=== PATIENT | male | born 1970 | race Two or more races ===

== ENCOUNTER → 2020-04-22 | Outpatient (REF) | LOC: M LAB REF 08:30 | PROVIDERS: ATTEND Student in an Organized Health Care Education/Training Program | DX: Z11.59 Encounter for screening for other viral diseases (principal); Z20.828 Contact with and (suspected) exposure to other viral communicable diseases ==

== ENCOUNTER → 2021-02-03 | Outpatient (REF) | payer BC | LOC: M LABCFH 13:46 | PROVIDERS: ATTEND Physician Assistant | DX: D23.62 Other benign neoplasm of skin of left upper limb, including shoulder (principal) ==

== ENCOUNTER → 2021-03-11 | Outpatient (CLI) | payer BC ==
--- NOTE | 2021-03-11 11:31 | REP ---
INDICATION: ESSENTIAL HTN; HTN. COMPARISON: None. TECHNIQUE: Real-time sonographic evaluation of the kidneys is performed. FINDINGS: Renal cortical echogenicity pattern is normal bilaterally and contours are smooth. There is no hydronephrosis bilaterally. There is a 1.3 cm cyst in the upper pole the left kidney. The right kidney measures 11.5 x 7.7 x 7.0 cm. Left renal dimensions are 10.9 x 5.8 x 6.5 cm. The urinary bladder is empty. The peak systolic velocity of the abdominal aorta at the level of the renal arteries is 71 centimeter/second. The peak systolic velocity of the main right renal artery is 121 centimeters/second, renal to aortic ratio 1.70. Resistive indices right kidney range between 0.55 and 0.65. Acceleration times range seen 0.030 and 0.067. The peak systolic velocity of the main left renal artery is 162 centimeters/second, renal to aortic ratio 2.3. Resistive indices left kidney range between 0.59 and 0.64. Acceleration times range between 0.058 and 0.070. IMPRESSION: No compelling duplex Doppler sonographic evidence of hemodynamically significant stenosis of the renal arteries bilaterally. <Electronically signed by Gene Odom > 03/11/21 0245
== END ==
LOC: M RAD 08:36
PROVIDERS: ATTEND Registered Nurse
DX: I10 Essential (primary) hypertension (principal)

== ENCOUNTER → 2022-04-20 | Outpatient (REF) | payer BC ==
[2022-04-20 13:50] LABS: APPEARANCE, URINE CLEAR (CLEAR); BACTERIA, URINE AUTO NEGATIVE (NEGATIVE); BILIRUBIN, URINE AUTO NEGATIVE (NEGATIVE); BLOOD, URINE BLOOD NEGATIVE (NEGATIVE); COLOR, URINE YELLOW (YELLOW); GLUCOSE, URINE (UA) AUTO NEGATIVE (NEGATIVE); KETONE, URINE AUTO NEGATIVE (NEGATIVE); LEUKOCYTE ESTERASE, URINE AUTO NEGATIVE (NEGATIVE); MUCUS, URINE SMALL (NEGATIVE); NITRITE, URINE AUTO NEGATIVE (NEGATIVE); PROTEIN, URINE AUTO NEGATIVE (NEGATIVE); RBC, URINE AUTO 1 /HPF (0-3); SPECIFIC GRAVITY URINE AUTO 1.016 (1.002-1.035); SQUAMOUS EPITHELIAL CELL UR AU 0 /HPF (0-6); UROBILINOGEN, URINE AUTO 0.2 mg/dL (0.0-2.0); WBC, URINE AUTO 0 /HPF (0-3)
[2022-04-20 14:31] LABS: TOTAL PROTEIN,RANDOM URINE 13.7 MG/DL (0.0-12.0)
[2022-04-20 15:03] LABS: C REACTIVE PROTEIN QUANTITATIV < 0.30 MG/DL (0.00-0.30); IRON (FE) 71 UG/DL (65-175); MAGNESIUM LEVEL 2.2 MG/DL (1.8-2.4)
[2022-04-20 16:11] LABS: TOTAL 25(OH) VITAMIN D 21.8 NG/ML (30.0-100.0); VITAMIN B12 LEVEL 468 PG/ML (247-911)
[2022-04-22 08:10] LABS: DRVV SCREEN 45.8 SEC
[2022-04-22 08:16] LABS: PTT LUPUS TYPE ANTICOAG SCREEN 1.2 (0-1.2)
[2022-04-22 08:23] LABS: DRVV CONFIRM 38.8 SEC
[2022-04-22 08:32] LABS: NORMALIZED RATIO 1.2 (0.00-1.20)
[2022-04-24 14:07] LABS: HEXAGONAL PHASE PHOSPHOLIPID 6 sec (0-11)
== END ==
LOC: M SFHCRHEU 10:41
PROVIDERS: ATTEND Internal Medicine
DX: R80.8 Other proteinuria (principal); R53.82 Chronic fatigue, unspecified; M25.50 Pain in unspecified joint; L56.8 Other specified acute skin changes due to ultraviolet radiation

== ENCOUNTER → 2022-05-25 | Outpatient (REF) | LOC: M SLEEP HO 10:00 | PROVIDERS: ATTEND Student in an Organized Health Care Education/Training Program | DX: G47.33 Obstructive sleep apnea (adult) (pediatric) (principal) ==

== ENCOUNTER → 2022-05-27 | Outpatient (CLI) | payer BC | LOC: M CARPUL 08:37 | PROVIDERS: ATTEND Internal Medicine | DX: M79.89 Other specified soft tissue disorders (principal) ==

== ENCOUNTER 2025-08-22 07:57 | Day surgery (SDC) | payer OTHER ==
[~2025-08-22] VITALS: Ht 172.7 cm; Wt 114.1 kg
[~2025-08-22 07:57] MED LIST: AMLO1TAB25 PO; EZET10TA57 PO; LISI20TA33 PO; MELO15TA28 PO; METO1TAB32 PO; ROSU40TA81 PO
[2025-08-22] MEDS ORDERED: LIDOCAINE 2% 100 MG/5 ML SDV (FOR ANES.) As Ordered ONE (09:17)
[2025-08-22] MEDS ORDERED: GLYCOPYRROLATE INJ 0.2 MG/ML 2 ML VIAL As Ordered ONE (09:17)
[2025-08-22 09:41] VITALS: TEMP 97.3
[2025-08-22 10:02] VITALS: BP 143/84; O2SAT 98
== END 2025-08-22 10:21 | disposition home or self-care (01) ==
LOC: M OPP 07:57
PROVIDERS: ATTEND Internal Medicine Gastroenterology
DX: Z12.11 Encounter for screening for malignant neoplasm of colon (principal); K63.5 Polyp of colon; K57.30 Diverticulosis of large intestine without perforation or abscess without bleeding; I10 Essential (primary) hypertension; M13.0 Polyarthritis, unspecified; Z79.899 Other long term (current) drug therapy
CPT/HCPCS: 45380; 88305; J1596